=== PATIENT | male | born 1975 | race Caucasian/White ===

== ENCOUNTER 2022-06-13 07:58 | Day surgery (SDC) | payer BC ==
[2022-06-11 16:22] VITALS: BMI 27.6
[2022-06-13] MEDS ORDERED: FENTANYL CITRATE/PF 50 MCG/ML VIAL ONE (08:36)
[2022-06-13] MEDS ORDERED: BUPIVACAINE LIPOSOME/PF (EXPAREL) 266 MG/20 ML VIAL ONE (08:37)
[2022-06-13] MEDS ORDERED: BUPIVACAINE HCL/PF 0.5% (5MG/ML) 10 ML VIAL ONE (08:37)
[2022-06-13] MEDS ORDERED: MIDAZOLAM HCL 2 MG/2 ML SINGLE DOSE VIAL ONE (08:37)
[2022-06-13] MEDS ORDERED: ceFAZolin SODIUM 1 GM VIAL ONE (09:41)
[2022-06-13] MEDS ORDERED: DEXAMETHASONE SOD PHOSPHATE 4 MG/1 ML VIAL ONE (09:42)
[2022-06-13] MEDS ORDERED: ONDANSETRON 4 MG/2 ML VIAL ONE (09:42)
[2022-06-13] MEDS ORDERED: PROPOFOL 40 ML ONE (09:46)
[2022-06-13] MEDS ORDERED: ONDANSETRON 4 MG/2 ML VIAL IVPUSH PRN (12:12)
[2022-06-13] MEDS ORDERED: oxyCODONE HCL 5 MG TABLET PO PRN (12:12)
[2022-06-13] MEDS ORDERED: LACTATED RINGERS SOLUTION 1,000 ML IV SCH (12:15)
[2022-06-13 12:19] VITALS: TEMP 98
[2022-06-13 13:03] VITALS: BP 131/71; PULSE 69; RESP 18
== END 2022-06-13 13:30 | disposition home or self-care (01) ==
LOC: FASU 07:58
PROVIDERS: ATTEND Orthopaedic Surgery Sports Medicine
PROC: 0LQL0ZZ Repair Right Upper Leg Tendon, Open Approach (ICD-10-PCS; principal; 2022-06-13 09:56)
DX: S76.121A Laceration of right quadriceps muscle, fascia and tendon, initial encounter (principal); X58.XXXA Exposure to other specified factors, initial encounter; Y92.9 Unspecified place or not applicable; Y93.9 Activity, unspecified
CPT/HCPCS: 94760; C1713